=== PATIENT | male | born 1985 | race Caucasian/White ===

== ENCOUNTER 2018-08-03 04:31 | Inpatient (IN) | payer OTHER ==
[2018-08-03] VITALS (28 sets, daily range): BP systolic 91–129; BP diastolic 37–77
[~2018-08-03] VITALS: Ht 182.9 cm; Wt 127.5 kg
--- NOTE | ~2018-08-03 | CON ---
[address] [address] CONSULTATION Name: MARGOT IVY Room: [address] IN [facility].#: [id number] Admission: 08/03/18 Attend Phys: Kieran Venegas MD Discharge: Date of : 85 Report #: [id number] THIS REPORT FOR: //name// CC: Kieran Campo HISTORY OF PRESENT ILLNESS: This is a pleasant 33-year-old gentleman with past medical history significant for hypertension, diabetes and alcohol abuse who is presenting with weakness and dark colored stools. The patient reports that yesterday afternoon, he began feeling extremely weak and dizzy and appeared to have intermittent palpitations. Around the same time, the patient began experiencing episodes of dark colored stools. The patient reports stools are black in color, loose and sticky in consistency. The patient also reports one episode of dark colored emesis last night and has had an episode of bright red blood emesis later today. The patient denies similar episodes in the past and reports he has never had an upper GI endoscopy. PAST MEDICAL HISTORY: Significant for hypertension and diabetes. PAST SURGICAL HISTORY: Nonsignificant. FAMILY HISTORY: Significant for hypertension and diabetes. No family history of liver disease or cancer. SOCIAL HISTORY: The patient reports smoking cigars intermittently and reports drinking at least 2 glasses of vodka every day. He denies recreational drug use. REVIEW OF SYSTEMS: Comprehensive 10-point review of systems is negative except for what was mentioned in the HPI. PHYSICAL EXAMINATION: VITAL SIGNS: Pulse rate 122, respirations 26, blood pressure 105/46, pulse ox 95%. GENERAL: The patient is alert, awake, oriented x 3. HEENT: Pupils are equal, round, reactive to light and accommodation. There is no asterixis. Mucous membranes are moist. There is no congestion. LUNGS: Clear to auscultation bilaterally. CARDIOVASCULAR: Rate and rhythm regular, S1, S2 present. ABDOMEN: Soft. There is no distention, guarding or rigidity. SKIN: Warm and dry. EXTREMITIES: No edema. LABORATORY DATA: Hemoglobin 8.8, hematocrit 28.2, platelet count 256, WBC count 17.3. Sodium 136, potassium 4.9, chloride 104, bicarbonate 23, BUN 33, creatinine 1.6. INR 1.3. Total bilirubin 1.2, AST 62, ALT 55, alkaline phosphatase 74. Abdomen and pelvis CT [place] [address] CONSULTATION Name: MARGOT IVY Room: [address] IN [facility]#: [id number] Admission: 08/03/18 Attend Phys: Kieran Venegas MD Discharge: Date of : 85 Report #: [id number] liver parenchyma with nodular configuration of the liver and fatty infiltration concerning for cirrhosis with underlying hepatitis. No evidence of biliary ductal dilation. Cholelithiasis without CT evidence of cholecystitis. Splenomegaly. No ascites noted. ASSESSMENT AND PLAN: This is a pleasant 33-year-old male with extensive history of alcohol abuse, diabetes, and hypertension who is presenting for evaluation of hematemesis and melena. The patient has never had an upper gastrointestinal endoscopy in the past. 1. Possible variceal upper gastrointestinal bleeding. We will proceed with giving the patient Protonix and octreotide drips and place him on ceftriaxone IV. Upper gastrointestinal endoscopy recommended for evaluation and management of bleeding. 2. Maintain 2 peripheral IVs, keep the patient n.p.o. for planned procedure. The patient was seen and examined in the ICU. About 33 minutes were spent performing history, physical examination, reviewing the patient's medical record and formulating a plan of care. By: [id number] Hager MD /nt
--- NOTE | ~2018-08-03 | CON ---
[address] [address] CONSULTATION Name: MARGOT IVY Room: [address] IN [facility].#: [id number] Admission: 08/03/18 Attend Phys: Kieran Venegas MD Discharge: Date of : 85 Report #: [id number] THIS REPORT FOR: //name// CC: Kieran Campo DATE OF SERVICE: 08/03/2018 REQUESTING PHYSICIAN: Dr. Bonner REASON FOR CONSULTATION: Acute kidney injury. HISTORY OF PRESENT ILLNESS: The patient is a 33-year-old man with medical history significant for diabetes mellitus type 2, hypertension, obesity, and alcoholism, presents with complaints of nausea, vomiting, and dark stools. He was found to have GI bleed and also his creatinine was elevated at 1.7 and I was consulted. SOCIAL HISTORY: Significant for alcoholism. He drinks 2 glasses of vodka a day. says that he drinks for the last 11 years. FAMILY HISTORY: Positive for diabetes, obesity, and hypertension. MEDICATIONS PRIOR TO ADMISSION: Reviewed. REVIEW OF SYSTEMS: Positive for the above mentioned symptoms; otherwise, all systems reviewed and negative. PHYSICAL EXAMINATION: GENERAL: Awake, alert, and oriented. VITAL SIGNS: Blood pressure 105/46, heart rate is 120, respirations 26, afebrile. HEENT: Pupils round. NECK: Fatty. LUNGS: Clear. CARDIOVASCULAR: Regular rate. ABDOMEN: Soft. LOWER EXTREMITIES: No edema. DIAGNOSTIC DATA: Lab reports significant for hemoglobin 7.0, white count 17,000. Urinalysis positive for 3+ protein, 1+ ketones, some bacteria and glucose. Toxicology is negative for cocaine. Chemistry: BUN 33, creatinine 1.6, sodium 136. INR 1.3, PT 13.4, PTT 24.7. The patient had CT scan that revealed evidence of cirrhotic liver. He also had upper GI done that revealed esophageal varices consistent [place] [address] CONSULTATION Name: MARGOT IVY Room: [address] IN [facility].#: [id number] Admission: 08/03/18 Attend Phys: Kieran Venegas MD Discharge: Date of : 85 Report #: [id number] ASSESSMENT: 1. Alcoholic liver cirrhosis. 2. Diabetes mellitus type 2. 3. Hypertension. 4. Obesity. 5. Acute kidney injury. 6. It is very likely that he has some chronic kidney disease due to diabetes and hypertension. His diabetes and hypertension are not controlled. PLAN: Continue with fluids. Follow GI recommendation. Follow his renal function. The patient has to make a decision to stop smoking. Discussed with him, his , and ICU nurse. By: [id number] Brooks MD /nt
[2018-08-03] MEDS ORDERED: METFORMIN HCL500 MG PO (04:51)
[2018-08-03] MEDS ORDERED: COZAAR 25 MG TA25 M1 PO (04:52)
[2018-08-03 04:58] LABS: ABSOLUTE BASOPHILS 0.2 thou/uL (0.0-0.2); ABSOLUTE EOSINOPHILS 0.2 thou/uL (0.0-0.7); ABSOLUTE LYMPHOCYTES 4.1 thou/uL (0.8-5.3); ABSOLUTE MONOCYTES 1.9 thou/uL (0.0-1.2); BASOPHILS 1.2 %; EOSINOPHILS 1.2 %; HEMATOCRIT 28.2 % (42.0-52.0); HEMOGLOBIN 8.8 gm/dL (14.0-18.0); LYMPHOCYTES 23.7 %; MCH 28.7 pg (26.0-34.0); MCHC 31.1 g/dL (28.0-37.0); MCV 92.5 fL (80.0-100.0); MONOCYTES 10.7 %; MPV 10.2 fl. (7.2-11.1); NUCLEATED RBCS 0 /100WBC; PLATELET COUNT* 256 thou/uL (150-400); POLYS 63.2 %; RBC 3.05 mil/uL (4.50-6.00); RDW-CV 14.8 % (10.5-14.5); WBC 17.3 thou/uL (4.0-11.0)
[2018-08-03 05:06] LABS: ANION GAP 16 mmol/L (7-16); BUN 26 mg/dL (7-18); CALCIUM 8.4 mg/dL (8.5-10.1); CHLORIDE 99 mmol/L (98-107); CO2 18 mmol/L (21-32); CREATININE 1.7 mg/dL (0.6-1.3); GLUCOSE 485 mg/dL (70-99); POTASSIUM 4.1 mmol/L (3.5-5.1); SODIUM 133 mmol/L (136-145)
[2018-08-03 05:07] LABS: APTT 24.7 Seconds (25.0-31.3); INR 1.3; PROTIME 13.4 Seconds (9.20-11.50)
[2018-08-03 05:14] LABS: ALBUMIN 2.4 g/dL (3.4-5.0); ALKALINE PHOSPHATASE 74 U/L (46-116); SGOT 62 U/L (15-37); SGPT 55 U/L (30-65); TOTAL BILIRUBIN 1.2 mg/dL (<0.1-1.0); TOTAL PROTEIN 6.9 g/dL (6.4-8.2); TROPONIN-I LEVEL <0.06 ng/mL (<0.06)
[2018-08-03 09:19] LABS: URINE BLOOD NEGATIVE (Negative); URINE CLARITY CLEAR; URINE COLOR YELLOW; URINE GLUCOSE-RANDOM 2+ (Negative); URINE KETONES 1+ (Negative); URINE LEUKOCYTES-REFLEX NEGATIVE (Negative); URINE NITRITE-REFLEX NEGATIVE (Negative); URINE PROTEIN 2+ (Negative); URINE SPECIFIC GRAVITY >= 1.030 (1.005-1.030)
[2018-08-03 09:22] LABS: ICTOTEST (BILI CONFIRMATORY) Positive (Negative); URINE BILIRUBIN 1+ (Negative)
[2018-08-03 09:27] LABS: AMP/METHAMP Negative (Negative); BACTERIA-REFLEX 1-9 Few /HPF (None Seen); BARBITURATES Negative (Negative); BENZODIAZEPINES POSITIVE (Negative); COCAINE Negative (Negative); METHADONE Negative (Negative); MUCUS 4-6 Moderate strn/LPF (None Seen); OPIATES Negative (Negative); PCP Negative (Negative); SQUAMOUS 4-10 Moderate /LPF (0-3); THC Negative (Negative); URINE RBC 0-2 Rare /HPF (0-2); URINE WBC-REFLEX 0-5 Rare /HPF (0-5)
[2018-08-03 09:28] LABS: CRYSTALS None Seen /LPF (None Seen); HYALINE CASTS 4-10 Moderate /LPF (None Seen)
[2018-08-03 10:12] LABS: HEMATOCRIT 25.1 % (42.0-52.0); MCH 29.5 pg (26.0-34.0); MCHC 31.9 g/dL (28.0-37.0); MCV 92.4 fL (80.0-100.0); MPV 9.6 fl. (7.2-11.1); RBC 2.72 mil/uL (4.50-6.00); RDW-CV 14.8 % (10.5-14.5)
[2018-08-03 10:16] LABS: CREATININE 1.6 mg/dL (0.6-1.3); POTASSIUM 4.9 mmol/L (3.5-5.1)
[2018-08-03 14:28] LABS: HEMATOCRIT 21.8 % (42.0-52.0)
--- NOTE | 2018-08-03 15:00 | NUR ---
PT TO EGD.
--- NOTE | 2018-08-03 15:05 | NUR ---
SPOKE WITH PT, AND MOTHER ALSO IN THE ROOM. PT ADMITTED THIS MORNING WITH GI BLEED. PT SAID HE LIVES AT HOME WITH HIS , HAS BEEN ACTIVE AND INDEP. BRIEFLY DISCUSSED ROLE OF CASE MGT. WILL ASSESS MORE THOROUGHLY FOR ANY DISCHARGE NEEDS, ONCE DIAGNOSIS IS CONFIRMED. WILL CONTINUE TO FOLLOW.
--- NOTE | 2018-08-03 15:35 | NUR ---
PT BACK FROM D.
--- NOTE | 2018-08-03 18:07 | EKG ---
[place] [address] ELECTROCARDIOGRAM REPORT Name: MARGOT IVY Room: [address] IN [facility].#: [id number] Admission: 08/03/18 Attend Phys: Kieran Venegas MD Discharge: Date of : 85 Report #: [id number] THIS REPORT FOR: //name// [facility] ED Test Date: 2018-08-03 Test Time: 06:23:22 Pat Name: MRAGOT IVY Department: Room: [facility] Gender: M [employer]: : 1985 Requested By: Dunia Berman Order Number: [id number] MD: Levi Nichols Measurements Intervals [place] Rate: 121 P: 41 MI: 138 QRS: 28 QRSD: 79 T: -1 QT: 333 QTc: 473 Interpretive Statements Sinus tachycardia No previous ECG available for comparison Electronically Signed On 08-03-2018 18:07:37 OFFICE MANAGER RECEPTIONIST by Levi Nichols [email or web address] <ELECTRONICALLY SIGNED> By: Levi Nichols MD, [facility] 08/03/18 1807 0623 06 Levi Nichols MD, FACC /EPI
--- NOTE | 2018-08-03 18:26 | NUR ---
PT ASSESSMENT CHARTED. HYPOTENSIVE PRIOR TO EGD BUT CAME BACK UP AFTER 1 UNIT OF PRBC. H&H POST INFUSION SCHEDULED FOR 1900. 1 BLOODY EMESIS DURING THE SHIFT APPROX 500 ML. PT UP HOURLY TO USE BEDSIDE COMMODE, SEVERAL DARK BLACK LIQUID STOOLS DURING THE SHIFT. PT ONLY VOIDED 200. THIS INFORMATION WAS GIVEN TO RENAL MD. ORDERS RECEIVED FOR [place] FOR POST VOID RESIDUAL GREATER THAN 170. WILL CONTINUE TO MONITOR THIS. NO OTHER COMPLAINTS DURING THE SHIFT. PT TOLERATING CLEAR LIQUID DIET FOR SUPPER.
[2018-08-03 19:13] LABS: HEMATOCRIT 22.7 % (42.0-52.0); HEMOGLOBIN 7.4 gm/dL (14.0-18.0)
[2018-08-03 23:07] LABS: HEPATITIS B SURFACE AG Negative (Negative)
[2018-08-04] VITALS (27 sets, daily range): BP systolic 113–173; BP diastolic 52–99
[2018-08-04 00:30] LABS: HEMATOCRIT 24.3 % (42.0-52.0)
[2018-08-04 04:35] LABS: HEMATOCRIT 24.1 % (42.0-52.0); HEMOGLOBIN 7.9 gm/dL (14.0-18.0); MCH 30.5 pg (26.0-34.0); MCHC 32.9 g/dL (28.0-37.0); MCV 92.6 fL (80.0-100.0); MPV 9.3 fl. (7.2-11.1); RBC 2.6 mil/uL (4.50-6.00); RDW-CV 15.3 % (10.5-14.5); WBC 8.7 thou/uL (4.0-11.0)
[2018-08-04 04:58] LABS: ALBUMIN 2.4 g/dL (3.4-5.0); CALCIUM 7.2 mg/dL (8.5-10.1); CREATININE 1.1 mg/dL (0.6-1.3); MAGNESIUM 2.4 mg/dL (1.8-2.4); TOTAL PROTEIN 5.9 g/dL (6.4-8.2)
--- NOTE | 2018-08-04 05:43 | NUR ---
PROGRESSING TOWARD GOALS. VSS. PT TOLERATED TRANSFUSION OF 1 UNIT PRBC'S LAST NOC, RECHECK HGB 8.0 AT MIDNIGHT. THIS AM HGB 7.9, DR BAER NOTIFIED VIA [facility]. PT HAS DENIED PAIN, SOA, AND OTHER CONCERNS THROUGHOUT THE NIGHT. LUNG SOUNDS REMAIN DIMINISHED BUT CLEAR. OCTREOTIDE AND PROTONIX GTTS INFUSING ORDERED. PT HAS HAD TWO SMALL-MODERATE SIZED LIQUID BLACK BM'S, THE SECOND BEING VERY SMALL. TOLERATING CLEAR LIQUID DIET WITHOUT C/O NAUSEA. MONITORING BG Q4HR DUE TO HYPERGLYCEMIA. PT MOVES SELF INDEPENDENTLY IN BED. CALL LIGHT WITHIN REACH.
--- NOTE | 2018-08-04 11:00 | NUR ---
SPOKE WITH PT, WITH HIS PERMISSION HIS AND MOTHER STAYED IN THE ROM. DISCUSSED IMPORTANCE OF QUITTING DRINKING ALL TOGETHER, DISCUSSED ALCOHOL TREATMENT OPTIONS. GAVE PT A LIST OF ALCOHOL TREATMENT PROGRAMS, INCLUDING AA AND TREATMENT OPTIONS THAT WORK ON A SLIDING SCALE PAYMENT. PT TEARFUL DURING DISCUSSION, STATES HE UNDERSTANDS HE HAS TO QUIT DRINKING AND HE WILL. AND MOTHER SUPPORTIVE. PT CURRENTLY IS UNEMPLOYED. DR. HALEY MIRANDA IS HIS PCP. HE STATED HE CAN AFFORD THE ROUTINE MEDICATIONS HE WAS ON. CASE MGT WILL CONTINUE TO FOLLOW.
[2018-08-04 15:08] LABS: HEPATITIS B SURFACE AG Negative (Negative)
[2018-08-04 16:17] LABS: HEMATOCRIT 23.6 % (42.0-52.0); HEMOGLOBIN 7.8 gm/dL (14.0-18.0)
--- NOTE | 2018-08-04 16:35 | NUR ---
PT ASSESSMENT CHARTED. VSS THROUGHOUT SHIFT. UP SBA TO BEDSIDE COMMODE. NO REPORTS OF PAIN. REPORT HANDED OFF AT THIS TIME TO ANOTHER ICU NURSE. WILL CONTINUE TO MONITOR.
[2018-08-05] VITALS (14 sets, daily range): BP systolic 120–155; BP diastolic 67–93
[2018-08-05 04:07] LABS: HEMATOCRIT 26.3 % (42.0-52.0); HEMOGLOBIN 8.9 gm/dL (14.0-18.0); MCH 30.8 pg (26.0-34.0); MCHC 33.7 g/dL (28.0-37.0); MCV 91.3 fL (80.0-100.0); MPV 8.2 fl. (7.2-11.1); RBC 2.88 mil/uL (4.50-6.00); RDW-CV 15.1 % (10.5-14.5); WBC 7.4 thou/uL (4.0-11.0)
[2018-08-05 04:14] LABS: INR 1.2; PROTIME 12.2 Seconds (9.20-11.50)
[2018-08-05 04:25] LABS: ALBUMIN 2.4 g/dL (3.4-5.0); ALKALINE PHOSPHATASE 60 U/L (46-116); ANION GAP 7 mmol/L (7-16); BUN 10 mg/dL (7-18); CHLORIDE 107 mmol/L (98-107); CHOLESTEROL 128 mg/dL (<200); CO2 22 mmol/L (21-32); CREATININE 0.9 mg/dL (0.6-1.3); GLUCOSE 133 mg/dL (70-99); HDL CHOLESTEROL 15 mg/dL (>40); LDL CHOLESTEROL 85 mg/dL (<100); MAGNESIUM 2.3 mg/dL (1.8-2.4); POTASSIUM 3.8 mmol/L (3.5-5.1); SGOT 183 U/L (15-37); SGPT 103 U/L (30-65); SODIUM 136 mmol/L (136-145); TC:HDL 8.5 Ratio (Not establshd); TOTAL BILIRUBIN 1.3 mg/dL (<0.1-1.0); TOTAL PROTEIN 6.4 g/dL (6.4-8.2); TRIGLYCERIDE 140 mg/dL (<150); VLDL 28 mg/dL (<40)
[2018-08-05 04:31] LABS: SERUM ASSESSMENT CLEAR
--- NOTE | 2018-08-05 05:57 | NUR ---
Pt reports he rested well overnight, though up frequently to void. Voiding without difficulty. Soft black BM at approx. 0100. CIWA = 0. Denies pain. BP 130s-160s/70s-90s. Otherwise VSS. ST per monitor, rate low 100s. Will continue to monitor.
--- NOTE | 2018-08-05 09:05 | NUR ---
PATIENT IS NOW M/S TELE STATUS
[2018-08-05 10:10] LABS: IgG 1317 mg/dL (700-1600); IgM 150 mg/dL (20-172)
--- NOTE | 2018-08-05 17:00 | NUR ---
VSS, ASSUMED CARE OF PT FROM ICU, ASSESSMENT PERFORMED AND I AGREE WITH ICU ASSESSMENT FINDINS, PT IS A&O4, SR/ST ON THE MONITOR, RA, UP AD KATY, DENIES ANY PAIN, PT GOAL IS SAFETY, WILL FOLLOW WITH PLAN OF CARE AND HOURLY ROUNDS.
[2018-08-05 21:07] LABS: GLYCOHEMOGLOBIN (HGB A1C) 10.5 % (4.8-5.6)
[2018-08-06] VITALS: BP 147/82
[2018-08-06 04:00] VITALS: BP 145/76
--- NOTE | 2018-08-06 04:49 | NUR ---
PT CARE ASSUMED AT 1930. SAT MAINTAINED IN RA. PT IS ALERT AND ORIENTED X4. DENIES PAIN AND SOB. PROTONIX AND OCTREOTIDE DRIP RUNNING. HOURLY ROUNDING DONE FOR PT SAFETY.
[2018-08-06 05:07] LABS: HEMATOCRIT 26.8 % (42.0-52.0); HEMOGLOBIN 8.9 gm/dL (14.0-18.0); MCH 30.8 pg (26.0-34.0); MCHC 33.1 g/dL (28.0-37.0); MCV 93.1 fL (80.0-100.0); MPV 9.1 fl. (7.2-11.1); RBC 2.88 mil/uL (4.50-6.00); RDW-CV 15.8 % (10.5-14.5); WBC 7.2 thou/uL (4.0-11.0)
[2018-08-06 05:28] LABS: ALBUMIN 2.4 g/dL (3.4-5.0); CALCIUM 7.4 mg/dL (8.5-10.1); TOTAL BILIRUBIN 1.2 mg/dL (<0.1-1.0); TOTAL PROTEIN 6.6 g/dL (6.4-8.2)
[2018-08-06 08:00] VITALS: BP 143/97
--- NOTE | 2018-08-06 10:40 | NUR ---
ASSUMED PT CARE REPORT RECEIVED FROM NURSE. PT IS AOX4 SR ON SKI MAKER. ON RA AND SATURATION IS ABOVE 95%. ACCUCHECK MONITORED. INSULN GIVEN PER SLIDING SCALE. PT IS CONCERNED ABOUT GOING HOME. DR IN ROOM WITH PT DISCUSSING POSSIBLE DISCAHRGE DATE. NURSE TO CALL [facility] TO FIGURE OUT FOLLOW UP CARE FOR PT. IF HE WANTS PT TO STAY ONE MORE DAY. [facility] PAGED BY NURSE. AWAITNG CALL BACK. WILL CONTINUE TO MONITOR PT.
[2018-08-06 12:11] VITALS: BP 131/87
[2018-08-06 16:00] VITALS: BP 146/93
[2018-08-06 20:00] VITALS: BP 149/98
[2018-08-07] VITALS: BP 127/81
[2018-08-07 04:00] VITALS: BP 130/78
--- NOTE | 2018-08-07 04:44 | NUR ---
PT CARE ASSUMED AT 1930. SAT MAINTAINED IN RA. DENIES PAIN AND SOB. ALERT AND ORIENTED X 4. CALL LIGHT WITHIN REACH AND BED IN LOW POSITION. HOURLY ROUNDING DONE FOR PT SAFETY.
[2018-08-07 08:00] VITALS: BP 144/96
[2018-08-07 09:29] VITALS: BP 136/95
[2018-08-07] MEDS ORDERED: LOPRESSOR25 PO (09:39)
[2018-08-07] MEDS ORDERED: PROTONIX40 M1 PO (09:41)
[2018-08-07] MEDS ORDERED: ACAMPROSATE CA333 MG PO (09:42)
[2018-08-07] MEDS ORDERED: CARAFATE1 GM PO (09:43)
--- NOTE | 2018-08-07 11:09 | NUR ---
ASSUMED PT CARE REPORT RECEIVED FROM NURSE. PT IS AOX4 SR ON IT CONSULTANT. MEDICATIONS GIVEN ORDERED.NO COMPLAINT OF PAIN. ACCUCHECK 104 NO INSULIN NEEDED. PT DC ORDERS IN CHART, PT FAMILY MEMBERS IN ROOM WAITING FOR DC. GI CONTACTED BY NURSE. GI OK FOR DC. DC INSTRUCTIONS GIVEN TO PT. PT STATES UNDERSTANDING, IV LINE DC'd, IT CONSULTANT DC'S WELL.
[2018-08-07 11:19] VITALS: BP 136/95
[2018-08-07 11:22] VITALS: BP 136/95
[2018-08-08 11:09] LABS: CERULOPLASMIN 25.4 mg/dL (16.0-31.0)
[2018-08-08 16:10] LABS: ANA INTERPRETATION Negative (Negative)
[2018-08-08 18:06] LABS: ANA INTERPRETATION Negative (())
== END 2018-08-07 11:17 | disposition home or self-care (01) | DRG 432 ==
LOC: M.ERS 04:31 → M.TBA-ER 06:53 → M.ICU 06:53 → M.2W 08-05 16:31
PROVIDERS: Internal Medicine; Internal Medicine Gastroenterology; Personal Emergency Response Attendant; ADMIT Internal Medicine
PROC: 30233N1 Transfusion of Nonautologous Red Blood Cells into Peripheral Vein, Percutaneous Approach (ICD-10-PCS; principal; 2018-08-03)
PROC: 06L38CZ Occlusion of Esophageal Vein with Extraluminal Device, Via Natural or Artificial Opening Endoscopic (ICD-10-PCS; principal; 2018-08-03)
DX: K70.30 Alcoholic cirrhosis of liver without ascites (principal); I85.11 Secondary esophageal varices with bleeding; N17.9 Acute kidney failure, unspecified; E87.2 Acidosis; K76.6 Portal hypertension; E11.65 Type 2 diabetes mellitus with hyperglycemia; I10 Essential (primary) hypertension; E53.8 Deficiency of other specified B group vitamins; D50.0 Iron deficiency anemia secondary to blood loss (chronic); F10.20 Alcohol dependence, uncomplicated; F17.210 Nicotine dependence, cigarettes, uncomplicated; E66.9 Obesity, unspecified; I95.9 Hypotension, unspecified; Z68.38 Body mass index [BMI] 38.0-38.9, adult; Z79.84 Long term (current) use of oral hypoglycemic drugs; Z79.899 Other long term (current) drug therapy; Z82.49 Family history of ischemic heart disease and other diseases of the circulatory system; Z83.3 Family history of diabetes mellitus